=== PATIENT | male | born 1995 | race Caucasian/White ===

== ENCOUNTER 2025-03-16 14:03 | Inpatient (IN) | payer OTHER, SELFPAY ==
[2025-03-16 14:23] VITALS: BP 162/83; PULSE 116; RESP 18; TEMP 37.2; O2SAT 96; BMI 36.3
--- NOTE | 2025-03-16 14:26 | ECG_ITS ---
Test Reason : HTN/TACHY Blood Pressure : */* mmHG Vent. Rate : 114 BPM Atrial Rate : 114 BPM P-R Int : 168 ms QRS Dur : 92 ms QT Int : 322 ms P-R-T Axes : 41 35 29 degrees QTcB Int : 443 ms Sinus tachycardia Possible Left atrial enlargement Borderline ECG No previous ECGs available Referred By: David Gracia Electronically Signed By: MATEUSZ MORIN
--- NOTE | 2025-03-16 14:27 | ED.GENADULT ---
HPI - General Adult General Chief complaint: General Medical Stated complaint: dizzy Time Seen by Provider: 03/16/25 14:55 History of Present Illness ED Provider: Johnie Lucero MD HPI narrative: [age] male with proximally a one L of rum per day drinking habit. Denies any drug use. Use brought in by an outpatient detox center they could not handle this patient because he was on seizure precautions and was hypertensive 170s over 110s. Patient does not know of any underlying hypertension Diagnosis and takes no daily meds. Related Data Home Medications ?Medication ?Instructions ?Recorded ?Confirmed lamotrigine 100 mg tablet 200 mg PO DAILY 03/16/25 03/16/25 lurasidone 40 mg tablet 40 mg PO DAILY 03/16/25 03/16/25 Allergies Allergy/AdvReac Type Severity Reaction Status Date / Time No Known Allergies Allergy Verified 03/16/25 14:26 [facility] Social History Social History Household Members: None Housing: House Do you presently have visiting nurse or other home services: No Patient Tobacco Use Status: Current everyday Tobacco user Tobacco use type: Cigarette Cigarettes Per Day: 10 Second Hand Smoke Exposure: No Substance Use Type: Crack/Cocaine and Marijuana service: No Physical Exam ED Exam Exam: EXAM: Gen: Alert, awake, well appearing, well hydrated. Anxious appearing. ETOH on breath. Head: Atraumatic Eyes: Anicteric, Normal conjunctiva. 2-3 mm symmetric reactive pupils. No jaundice ENT: Moist mucosa, no pallor. ? Neck: Supple. Skin: ?No observable rash or bruising on exposed or examined skin Respiratory: Breathing comfortably, No distress.Clear to auscultation bilaterally, symmetric chest expansion, No wheeze, rales, ronchi. Cardiovascular: Regular rate and rhythm. No murmurs or rub. Well perfused periphery, warm extremities. No edema. ? Abdominal: No focal tenderness. Soft, no objective distension. No palpable masses or obvious organomegaly. ?No guarding, no rebound tenderness or other peritoneal findings. : No flank tenderness. Neuro: Alert. Gross movement of all extremities intact. ?No tremor or tongue fasciculations face symmetric. Psych: Calm. Cooperative. MSK: No grossly visible deformity. Vital signs: See flowsheet Vital Signs: Vital Signs - 24 hr 03/16/25 14:23 10/30/25 15:19 03/16/25 16:48 Temperature 98.9 F 98.5 F Pulse Rate 116 H 105 H 110 H Respiratory Rate 18 15 16 Blood Pressure 162/83 H 141/81 H 117/78 Pulse Oximetry 96 95 95 Oxygen Delivery Method Room Air Room Air Room Air BMI result Body Mass Index 36.3 Course Course Course Narrative: RME: 29 yold male with pmh of alcohol abuse presents to the ED for tachycarrdia, hypertensive, and alcohol level on breathlizer 0.3. Patient is usually drinks a hand of alcohol every day but not today. Patient has only had a little bit. Patient is possibly going to withdrawal. Patient will be brought back to the ED. Labs ordered Medications Administered Discontinued Medications Generic Name Dose Route Start Last Admin Trade Name Freq PRN Reason Stop Dose Admin Diazepam 10 mg 03/16/25 18:16 03/16/25 18:32 Diazepam 10 Mg/2 Ml Cartridge IVPUSH 03/16/25 18:17 10 mg STAT STA Administration Enoxaparin Sodium 40 mg 03/17/25 08:00 03/17/25 08:33 Enoxaparin Sodium 40 Mg/0.4 Ml Syringe SUBCUT 40 mg Q24H ALEXA Administration Folic Acid 1 mg 03/17/25 11:00 03/17/25 11:56 Folic Acid 1 Mg Tablet PO 03/19/25 09:01 1 mg DAILY ALEXA Administration Lactated Ringer's 1,000 mls @ 999 mls/hr 03/16/25 16:30 03/16/25 19:51 Lr IV 03/16/25 18:30 Infused .Q1H1M ALEXA Infusion Thiamine HCl 400 mg/ Sodium 104 mls @ 208 mls/hr 03/16/25 16:30 03/17/25 04:59 Chloride IV Infused Q12H ALEXA Infusion Lactated Ringer's 1,000 mls @ 100 mls/hr 03/16/25 18:30 03/17/25 11:57 Lr IVCONT Infused .Q10H ALEXA Infusion Phenobarbital 60 mg 03/17/25 09:00 03/17/25 08:33 Phenobarbital 30 Mg Tablet PO 03/18/25 21:01 60 mg BID ALEXA Administration Protocol Phenobarbital Sodium 300 mg 03/16/25 17:00 03/16/25 18:36 Phenobarbital Sodium 130 Mg/Ml Im Once IM 03/16/25 17:01 300 mg ONCE ONE Administration Protocol Phenobarbital Sodium 225 mg 03/16/25 21:00 03/17/25 00:34 Phenobarbital Sodium 130 Mg/Ml Vial Im Q3hx2 IM 03/17/25 00:01 225 mg Q3H ALEXA Administration Protocol Sodium Chloride 3 ml 03/17/25 00:00 03/17/25 07:35 0.9 % Sodium Chloride Flush 3 Ml Syringe IVFLUSH Not Given QSHIFT [facility] Medical Decision Making Medical Decision Making MDM Narrative: Medical Decision Making: [age] male alcohol use disorder intoxicated but perhaps despite this maybe an early withdrawal given the high volume of alcohol he depends on. Thiamine and fluid repletion in the ED. Phenobarbital initiated due to the risk of complicated withdrawal. No electrolyte derangements. No active GI bleeding, jaundice or other acute medical issues. Patient required parenteral phenobarbital No acute clinical suggestion of hypertensive emergency/end-organ damage, no chest pain to suggest ACS Preliminary Favored Differential Diagnosis: Alcohol use disorder, withdrawal, electrolyte derangement, vitamin deficiency among additional considered etiologies Testing Interpreted Independently: ?See below for details Radiology or Lab testing Results Reviewed: ?See below for details Consults: ?See below for details Independent Historians/External Chart Reviews: ?See below for details Social Determinants of Health Impacting MDM/Planning: ?See below for details Consult Healthcare Provider Management of the patient was discussed with: Hospitalist Lab Data MDM Lab Attestation statement: I reviewed the patient's lab results. 03/17/25 05:34 03/17/25 05:34 Labs: Lab Results 03/16/25 03/16/25 Range/Units 14:51 16:49 WBC 8.1 (4.8-10.8) X10*3/uL RBC 5.31 (4.60-5.80) X10*6/uL Hgb 17.3 (14.0-18.0) g/dl Hct 48.3 (42.0-52.0) % MCV 91.0 (80.0-98.0) fL MCH 32.6 (27.0-33.0) pg MCHC 35.8 (31.0-36.0) g/dl RDW 13.0 (11.0-16.0) % Plt Count 241 (160-400) X10*3/uL MPV 8.7 L (9.4-12.4) fL Immature Gran % (Auto) 0.4 (0.0-0.4) % Neut % (Auto) 68.8 (45-73) % Lymph % (Auto) 22.6 (20-40) % Rock % (Auto) 6.6 (2-11) % Eos % (Auto) 0.9 (0-4) % Baso % (Auto) 0.7 (0-2) % Lymph # (Auto) 1.8 (1.2-4.9) X10*3/uL Rock # (Auto) 0.5 (0.1-1.2) X10*3/uL Eos # (Auto) 0.1 (0.0-0.4) X10*3/uL Baso # (Auto) 0.1 (0.0-0.2) X10*3/uL Abs Immat Gran (auto) 0.03 (0.00-0.03) X10*3/uL Absolute Neuts (auto) 5.6 (2.0-8.3) x10*3/uL Absolute Nucleated RBC 0.000 (0.0-0.012) X10*3/uL Nucleated RBC % (auto) 0.0 (0.0-0.2) /100WBC Sodium 139 (135-145) mmol/L Potassium 3.9 (3.3-5.1) mmol/L Chloride 101 (96-108) mmol/L Carbon Dioxide 21 L (22-29) mmol/L Anion Gap 21 H (12-20) BUN 10 (9-16) mg/dL Creatinine 0.69 (0.5-1.4) mg/dL Estim Creat Clear Calc 206.3 Estimated GFR > 60 Random Glucose 88 (60-115) mg/dL Calcium 9.2 (8.4-10.2) mg/dL Magnesium 2.0 (1.6-2.6) mg/dL Total Bilirubin 0.8 (0.0-1.0) mg/dL AST 57 H (5-37) U/L ALT 44 H (0-40) U/L Alkaline Phosphatase 63 (39-117) U/L Troponin I High Sens 2.7 (<3.5-35.0) ng/L Total Protein 7.7 (6.5-8.0) g/dL Albumin 5.1 H (3.5-5.0) g/dL TSH 0.62 (0.32-4.0) uIU/mL Urine Color Yellow Urine Appearance Clear Urine pH 6.0 (5.0-9.0) Ur Specific [place] 1.015 (1.005-1.025) Urine Protein Negative (Neg-Trace) mg/dL Urine Glucose (UA) Negative (Negative) mg/dL Urine Ketones >=80 (Negative) mg/dL Urine Blood Negative (Negative) Urine Nitrite Negative (Negative) Ur Leukocyte Esterase Negative (Negative) Urine Opiates Screen Not Detected (Not Detect) Ur Buprenorphine Scrn Not Detected (Not Detect) ng/mL Ur Oxycodone Screen Not Detected (Not Detect) ng/mL Urine Methadone Screen Not Detected (Not Detect) ng/mL Urine Fentanyl Screen Not Detected (Not Detect) Ur Barbiturates Screen Not Detected (Not Detect) Ur Phencyclidine Scrn Not Detected (Not Detect) Ur Amphetamines Screen Not Detected (Not Detect) U Benzodiazepines Scrn Not Detected (Not Detect) Urine Cocaine Screen Not Detected (Not Detect) U Marijuana (THC) Screen Not Detected (Not Detect) Ethyl Alcohol 285 mg/dL Social Determinants Patient?s care significantly limited by Social Determinants of Health including: Alcoholism and drug addiction in family Alcohol use disorder Critical Care Time Critical Care Time Critical Care Time: Yes Total Critical Care Time: 30 Attestation: ED Critical Care: Alcohol withdrawal syndrome requiring parenteral withdrawal treatment Authorized and Performed by: Johnie Lucero MD Total critical care time: Approximately 30 min Due to a high probability of clinically significant, life threatening deterioration, the patient required my highest level of preparedness to intervene emergently and I personally spent this critical care time directly and personally managing the patient. This critical care time included obtaining a history; examining the patient; pulse oximetry; ordering and review of studies; arranging urgent treatment with development of a management plan; evaluation of patient's response to treatment; frequent reassessment; and, discussions with other providers. This critical care time was performed to assess and manage the high probability of imminent, life-threatening deterioration that could result in multi-organ failure. It was exclusive of separately billable procedures and treating other patients and teaching time. Discharge Plan Discharge Clinical Impression: ETOH abuse Patient Disposition: Admitted As Inpatient Interventions: Admission Worksheet (ED) Last Done: 03/16/25 18:10 Discharge Date/Time: 03/16/25 18:40
[2025-03-16 14:55] LABS: MANUAL DIFF FLAG NO
[2025-03-16 15:02] LABS: Hematocrit 48.3 % (42.0-52.0); Hemoglobin 17.3 g/dl (14.0-18.0); Imm Gran Abs Auto 0.03 X10*3/uL (0.00-0.03); Imm Gran Pct Auto 0.4 % (0.0-0.4); Lymphocytes Absolute Auto 1.8 X10*3/uL (1.2-4.9); Mean Corpuscular HGB Conc 35.8 g/dl (31.0-36.0); Mean Corpuscular Hemoglobin 32.6 pg (27.0-33.0); Mean Corpuscular Volume 91.0 fL (80.0-98.0); NRBC Abs Auto 0.000 X10*3/uL (0.0-0.012); NRBC Pct Auto 0.0 /100WBC (0.0-0.2); Platelet Count 241 X10*3/uL (160-400); Red Blood Count 5.31 X10*6/uL (4.60-5.80); White Blood Count 8.1 X10*3/uL (4.8-10.8)
[2025-03-16 15:19] VITALS: BP 141/81; PULSE 105; RESP 15; TEMP 36.9; O2SAT 95
[2025-03-16 15:23] LABS: Alanine Aminotransferase 44 U/L (0-40); Albumin Level 5.1 g/dL (3.5-5.0); Alkaline Phosphatase 63 U/L (39-117); Anion Gap 21 (12-20); Aspartate Amino Transferase 57 U/L (5-37); Blood Urea Nitrogen 10 mg/dL (9-16); Calcium 9.2 mg/dL (8.4-10.2); Carbon Dioxide 21 mmol/L (22-29); Chloride 101 mmol/L (96-108); Creatinine Clr Calc Pharmacy 206.3; Estimated Glomerular Filt Rate > 60; Magnesium 2.0 mg/dL (1.6-2.6); Potassium 3.9 mmol/L (3.3-5.1); Sodium 139 mmol/L (135-145); Total Protein 7.7 g/dL (6.5-8.0)
[2025-03-16 16:17] LABS: Troponin-I High Sensitivity 2.7 ng/L (<3.5-35.0)
--- NOTE | 2025-03-16 16:43 | PC.NURSE ---
Patint presents to ED for tachycarrdia, hypertensive PMH ETOH Patient is usually drinks a hand of alcohol every day Patient is possibly going to withdrawal. CIWA 1 Patient going to private Detox center, nurse Nereida called for update Patient gave permission to speak with nurse Nurse updated on plan Plan of care on going
[2025-03-16 16:48] VITALS: BP 117/78; PULSE 110; RESP 16; O2SAT 95
[2025-03-16 17:04] LABS: Thyroid Stimulating Hormone 0.62 uIU/mL (0.32-4.0)
[2025-03-16 17:06] LABS: Cannabinoid Screen Urine Not Detected (Not Detect)
[2025-03-16] MEDS: Lactated Ringers 1,000 ML 999 ML IV ×2 (17:10→18:37)
[2025-03-16 17:14] LABS: Appearance Urine Clear; Glucose Urine UA Negative (Negative); PH 6.0 (5.0-9.0); Specific Gravity - Urine 1.015 (1.005-1.025)
--- OUTSIDE RECORDS SUMMARY | 2025-03-16 18:02 | XMS_ITS | Encounter Summary ---
Author Organization [facility] Address [address] [facility] [address] [place] [phone] Phone Care Team Providers Care Patient Safety Officer Name Role Phone Carina Thurston MD Primary Care Provider + Encounter Details Date Type Department Care Team (Late st Contact Info) Description 07/05/2024 Procedure Pass [facility] Emergency Imaging, [address], [address] 1 [place] [address] Social History Tobacco Use Types Packs/Day Years Used Date Smoking Tobacco: Never Assessed Education Answer Date Recorded Are you interested in more education? Not on ena e 09/21/2022 Are you concerned about learning? Not on file 09/21/2022 No 09/21/2022 No 09/21/2022 Digital Access Answer Date Recorded No 10/12/2022 No 10/12/2022 No 10/12/2022 Reliable internet access at home? Not on file 10/12/2022 Device with a working camera? Not on file Intimate Partner Violence Answer Date R ecorded Are you denied basic needs s uch as food, clothing, or medical care? Deferred 07/05/2024 In the past 12 months have y ou been in a relationship with a person who hurts, threatens, or tries to control you? Deferred 07/05/2024 Are you denied basic needs s uch as food, clothing, or medical care? Deferred 07/05/2024 In the past 12 months have y ou been in a relationship with a person who hurts, threatens, or tries to control you? Deferred 07/05/2024 Sex and Gender Information Value Date Recorded Sex Assigned at Male 07/05/2024 10:50 AM EST Legal Sex Male 6:03 PM EST Gender Identity Male 07/05/2024 10:50 AM EST Sexual Orientation Choose not to disclose 2024 10:50 AM EST documented as of this encounter Functional Status * Calculated C-SSRS Risk Score (Lifetime/Recent) Answer Date of Assessment Author No Risk Indicated 07/05/2024 10:25 AM Camelia Choi RN * [place] Suicide Severity Rating Scale (Screener/Recent Self-Report) Question Answer Date of Assessment Author 1. Wish to be (Past 1 Month) No 07/05/2024 10:25 AM Camelia Choi RN 2. Non-Specific Active Suicidal Thoughts (Past 1 Month) No 07/05/2024 10:25 AM Camelia Choi RN 6. Suicidal Behavior (Lifetime) No 07/05/2024 10:25 AM Camelia Choi RN documented as of this encounter Plan of Treatment Not on file documented as of this encounter Visit Diagnoses Not on filedocumented in this encounter Care Teams Patient Safety Officer Relationship Specialty Start Date End Date Carina Thurston MD [address] [place] [id number] [email or web address] PCP - General 11/15/13 documented as of this encounter Additional Source Comments The information contained in this document represents components of the legal health record. It is not the complete legal health record.[facility]
--- OUTSIDE RECORDS SUMMARY | 2025-03-16 18:02 | XMS_ITS | Encounter Summary ---
Author Organization [facility] Address [address] [facility] [address] [place] [phone] Phone Care Team Providers Care Glass Sander Name Role Phone Carina Thurston MD Primary Care Provider + Encounter Details Date Type Department Care Team (Late st Contact Info) Description 07/05/[address] [facility] [place], [address] [place] [address] Social History Tobacco Use Types Packs/Day Years [...] 07/05/2024 10:25 AM Camelia Choi RN * [place] Suicide Severity Rating Scale (Screener/Recent Self-Report) Question [...] on filedocumented in this encounter Care Teams Glass Sander Relationship Specialty Start Date End Date Carina Thurston MD [address] [place] [id number] [email or web address] PCP - General 11/15/13 documented as of this encounter Additional Source Comments The information contained in this document represents components of the legal health record. It is not the complete legal health record.[facility]
--- OUTSIDE RECORDS SUMMARY | 2025-03-16 18:02 | XMS_ITS | Encounter Summary ---
Author Organization [facility] Address [address] [place] [address] [place] [phone] Care Team Providers Care Hvac Designer Name Role Phone Deisy Wang Check Writer Salesperson Unavailable Deisy Wang Check Writer Salesperson Primary Care Provider [phone] Poc, Not Assigned Pcp Or Primary Care Provider U navailable Encounter Details Date Type Department Care Team (Late st Contact Info) Description 12/05/2021 Telephone [facility] Internal Medicine [address] [place] [address] Christy Silverman Social History Tobacco Use Types Packs/Day Years Used Date Smoking Tobacco: Heavy Smoker Cigarettes Smokeless Tobacco: Never Alcohol Use Standard Drinks/Week Comments Yes 0 (1 standard drink = 0.6 oz pure alcohol) 1-2 times/month, has blacked out 5-6 times Sex and Gender Information Value Date Recorded Sex Assigned at Male 01/07/2021 10:35 AM EDT Legal Sex Male 11:49 AM EDT Gender Identity Male 01/07/2021 10:35 AM EDT Sexual Orientation Straight 01/07/2021 10 :35 AM EDT documented as of this encounter Miscellaneous Notes * Telephone Encounter - Christy Silverman - 12/05/2021 11:02 AM EDT lvm asking patient to call back and re-jelani appnt with someone on Deisy Chahal office. documented in this encounter Plan of Treatment Not on file documented as of this encounter Visit Diagnoses Not on filedocumented in this encounter Care Teams Hvac Designer Relationship Specialty Start Date End Date Deisy Wang NP PCP - Payer 02/17/20 Day, Deisy Sandra NP PCP - General Internal Medicine 06/22/20 04/04/24 Poc, Not Assigned Pcp Or PCP - General 04/05/24 documented as of this encounter
--- OUTSIDE RECORDS SUMMARY | 2025-03-16 18:02 | XMS_ITS | Encounter Summary ---
Author Organization [facility] Address [address] [facility] [address] [place] [phone] Phone Care Team Providers Care Branch Assistant Name Role Phone Carina Thurston MD Primary Care Provider + Encounter Details Date Type Department Care Team (Late st Contact Info) Description 07/05/2024 Procedure Pass [facility] [place] Imaging, [address] [place] [address] Social History Tobacco Use Types Packs/Day Years [...] 07/05/2024 10:25 AM Camelia Choi RN * [place] Suicide Severity Rating Scale (Screener/Recent Self-Report) Question [...] on filedocumented in this encounter Care Teams Branch Assistant Relationship Specialty Start Date End Date Carina Thurston MD [address] [place] [id number] [email or web address] PCP - General 11/15/13 documented as of this encounter Additional Source Comments The information contained in this document represents components of the legal health record. It is not the complete legal health record.[facility]
--- OUTSIDE RECORDS SUMMARY | 2025-03-16 18:02 | XMS_ITS | Encounter Summary ---
Author Organization [facility] Address [address] [facility] [address] [place] [address] Phone Care Team Providers Care Knitting Supervisor Name Role Phone Carina Thurston MD Primary Care Provider + Encounter Details Date Type Department Care Team (Late st Contact Info) Description 07/05/2024 Procedure Pass [facility] [place] Emergency Imaging, [address], [address] [place] [address] Social History Tobacco Use Types Packs/Day Years [...] 07/05/2024 10:25 AM Camelia Choi RN * [place] Suicide Severity Rating Scale (Screener/Recent Self-Report) Question [...] on filedocumented in this encounter Care Teams Knitting Supervisor Relationship Specialty Start Date End Date Carina Thurston MD [address] [place] [phone] [email or web address] PCP - General 11/15/13 documented as of this encounter Additional Source Comments The information contained in this document represents components of the legal health record. It is not the complete legal health record.[facility]
--- OUTSIDE RECORDS SUMMARY | 2025-03-16 18:02 | XMS_ITS | Encounter Summary ---
Author Organization [facility] Address [address] [facility] [address] [place] [phone] Phone Care Team Providers Care Rn Supplemental Name Role Phone Carina Thurston MD Primary Care Provider + Encounter Details Date Type Department Care Team (Late st Contact Info) Description 09/05/2024 Procedure [facility] Emergency Department, [facility] [address] [place] [address] Social History Tobacco Use Types Packs/Day Years [...] as food, clothing, or medical care? Deferred 09/04/2024 In the past 12 months have y ou been in a relationship with a person who hurts, threatens, or tries to control you? Deferred 09/04/2024 Are you denied basic needs s uch as food, clothing, or medical care? Deferred 09/04/2024 In the past 12 months have y ou been in a relationship with a person who hurts, threatens, or tries to control you? Deferred 09/04/2024 Sex and Gender Information Value Date Recorded Sex Assigned at Male 07/05/2024 10:50 AM EST Legal Sex Male 6:03 PM EST Gender Identity Male 07/05/2024 10:50 AM EST Sexual Orientation Choose not to disclose 2024 10:50 AM EST documented as of this encounter Functional Status * Calculated C-SSRS Risk Score (Lifetime/Recent) Answer Date of Assessment Author No Risk Indicated 09/05/2024 4:25 AM EDT Yessenia Howe RN * [place] Suicide Severity Rating Scale (Screener/Recent Self-Report) Question Answer Date of Assessment Author 1. Wish to be (Past 1 Month) No 025 4:25 AM EDT Yessenia Howe RN 2. Non-Specific Active Suici justin Thoughts (Past 1 Month) No 09/05/2024 4:25 AM EDT Yessenia Howe RN 6. Suicidal Behavior (Lifetime) No 4:25 AM EDT Yessenia Howe RN documented as of this encounter Plan of Treatment Not on file documented as of this encounter Visit Diagnoses Not on filedocumented in this encounter Care Teams Rn Supplemental Relationship Specialty Start Date End Date Carina Thurston MD [address] [place] [address] [email or web address] PCP - General 11/15/13 documented as of this encounter Additional Source Comments The information contained in this document represents components of the legal health record. It is not the complete legal health record.[facility]
--- OUTSIDE RECORDS SUMMARY | 2025-03-16 18:02 | XMS_ITS | Clinical Summary ---
Author Organization [facility] Address [address] [facility] [place] [address] [place] [address] Care Team Providers Care Layout Mechanic Name Role Phone Day, Deisy Sandra Airborne Operations Manager Unavailable Poc, Not Assigned Pcp Or Primary Care Provider U navailable Allergies No known active allergies Medications * This document contains information received from the source organization and may not represent a complete record from that organization. multivit-min/foli c/vit K/lycop (MEN'S MULTIVITAMIN ORAL) Take by mouth daily Active traZODone 50 mg tablet Take 1 to 2 tabs at night for sleep 60 tablet 2 1 Active zolpidem 10 mg tabletIndications :Difficulty sleeping Take 1 tablet by mouth at bedtime as needed 10 tablet 1 1 Active clonazePAM 1 mg tablet Take 1-2 tablets at bedtime as needed 14 tablet 1 Active Active Problems Problem Noted Date Diagnosed Date Difficulty sleeping 01/14/2021 Overview (01/14/2021): For 6-8 months Trouble both falling and staying asleep Not feeling overly stressed out 2 cups of coffee per day, has cut back Has tried multiple otc meds, valerian root, and melatonin which didn't help Trazodone not helpful Assessment & Plan (01/14/2021 8:44 AM EDT): Was seen a couple of months ago and rx'd trazodone which didn't help Diagnosed with anxiety though he doesn't feel anxious History of ?bipolar 2. Moods feels good. Discussed this possibly is a manic episode but no real evidence to support. No labs to date R/o thyroid disorder, mom has hypothyroid Will try ambien, side effects reviewed If not improved with ambien would consider clonazepam Cigarette smoker motivated to quit 2018 Overview (2018): 2018 Previously 1 ppd, now down to 1-1.5 packs per week. Gave Chantix trial. Assessment & Plan (01/14/2021 8:45 AM EDT): Working on cutting back chantix caused extremely lucid dreams, jitteriness to buproprion Recurrent major depressive disorder, in full rem ission 10/15/2009 Assessment & Plan (01/14/2021 8:46 AM EDT): Doing well Mood feels good overall Continue to monitor Resolved Problems Problem Noted Date Diagnosed Date Resolved Date Obesity 04/29/2004 01/14/2021 Assessment & Plan (01/14/2021 8:17 AM EDT): Normal BMI, problem resolved Immunizations Immunization Administration Dates Next Due COVID-19 (MODERNA) Vaccine, 100mcg/0.5mL, 18YRS+, IM 09/07/2020,08/10/2020 DTP Vaccine 01/15/1996 DTaP Vaccine 1999, 8,05/20/1996,03/17 HFlu B Conj (Unspecified Formulation) ,05/20/1996,03/17/1996,01/14 HPV4 Vaccine(6,11,16,18) (Gardasil4) 12/21/2013 HPV9 Vaccine (Gardasil9) 04/04/2019,2018 Hep B Vaccine (Unspecified Formulation) 05/20/1996,1995,1995 MMR Vaccine 1999,11/29/1996 Meningococcal ACWY (Menactra ) Conjugate Vaccine 08/22/2009 Meningococcal ACWY (Menveo) Conjugate Vaccine 08/22/2009 OPV,Trivalent (Admin before 08/17/2015) 05/20/1996 ,03/17/1996,01/15/1996 Polio Vaccine (Inactivated) 1999 TdaP 2018,02/04/2008 Varicella Vaccine 04/24/2008,07/06/1997 Family History Medical History Relation Comments Hypertension Father Thyroid disorder Maternal Aunt Glaucoma Maternal Grandmother Thyroid disorder Mother hypothyroid Other Other (-)CHOL (-)HTN Relation Status Comments Brother Alive Father Alive Maternal Aunt Alive Maternal Grandfather Maternal Grandmother Alive Mother Alive Other Paternal Grandfather Paternal Grandmother Social History Tobacco Use Types Packs/Day Years [...] Orientation Straight 01/07/2021 10 :35 AM EDT History Length Weight Head Circum Date/Time Gestation Age D/C Weight APGARs Delivery Method Feeding 20.5 (52.1 cm) 8 lb 1 oz (3.657 kg) 0 (0 cm) 1995 40 wks 7 lb 10 oz 1min: 9 5mi n: 9 Obstetrics History Last Filed Vital Signs Vital Sign Reading Time Taken Comments Blood Pressure 119/67 01/14/2021 7:53 AM EDT Pulse 81 01/14/2021 7:53 AM EDT Temperature 36.6 C (97.8 F) 01/14/2021 7:53 AM EDT Respiratory Rate - - Oxygen Saturation 98% 01/14/2021 7:53 AM EDT Inhaled Oxygen Concentration - - Weight 85.3 kg (188 lb) 01/14/2021 7:53 AM EDT Height 177.8 cm (5' 10 ) 01/14/2021 7:53 AM EDT Body Mass Index 26.98 01/14/2021 7:53 AM EDT Plan of Treatment Health Maintenance Due Date Last Done Comments OFFICE VISIT 1995 HEP B INITIAL SCREENING 11/14/2013 HIV SCREENING 11/14/2013 PERIODIC HEALTH REVIEW 11/14/2017 LIPID SCREENING 11/16/2023 2018, 12/21/2013 COVID-19 Vaccine ( season) 2025 09/07/2020, 08/10/2020 FLU SEASONAL (#1) 01/16/2025 HEP C SCREENING 01/14/2026 01/14/2021 DTAP/TDAP/TD VACCINE (8 - Td or Tdap) 2028 2018, 02/04/2008, 1999, Additional history exists HEPATITIS B VACCINE Completed 05/20/1996, 1995, 1995 HAEMOPHILUS INFLUENZA VACCINE Completed 11/29/1996, 05/20/1996, 03/17/1996, Additional history exists POLIO VACCINE Completed 1999, 07/1996, 03/17/1996, Additional history exists HEPATITIS A VACCINE Aged Out No longe r eligible based on patient's age to complete this topic PNEUMOCOCCAL VACCINE(S) Aged Out No l onger eligible based on patient's age to complete this topic RSV Vaccine //toddler Aged Out No longer eligible based on patient's age to complete this topic Procedures Procedure Name Priority Date/Time Associated Diagnosis Comments HEPATITIS C ANTIBODY W/REFLEX TO PCR Routine 01/14/2021 8:47 AM EDT Need for hepatitis C screening test HDL Routine 2018 9:28 AM EDT Encounter for general adult medical examination with abnormal findings from Last 3 Months or Most Recently Relevant to Health Maintenance Results * HEPATITIS C ANTIBODY W/REFLEX TO PCR (01/14/2021 8:47 AM EDT) HEPATITIS C ANTIBODY <0.02 <0.80 Index Value (IV) 01/14/2021 2:32 PM EDT [facility] DEPARTMENT OF PATHOLOGY AND LAB MEDICINE Comment: NEGATIVE 0.00 - 0.79 Index Value (IV) Negative Blood (Blood, Venous) Venipuncture / Unknown 01/14/2021 8:47 AM EDT 01/14/2021 8:50 AM EDT us Deisy Sandra Np Day GENERAL LAB Final Result [facility] DEPARTMENT OF PATHOLOGY AND LAB MEDICINE [address] [place] [address] * HDL (2018 9:28 AM EDT) HDL 71 >=41 mg/dL 2018 1:39 PM EDT [facility] DEPARTMENT OF PATHOLOGY AND LAB MEDICINE Blood (Blood, Venous) Venipuncture / Unknown 2018 9:28 AM EDT 2018 9:35 AM EDT [facility] Eliud Murillo Md Sammy GENERAL LAB Final Result Performing Organization Address [facility] Co de Phone Number [facility] OF PATHOLOGY AND LAB MEDICINE [address] [place] [address] from Last 3 Months or Most Recently Relevant to Health Maintenance Insurance [facility] Care Teams Layout Mechanic Relationship Specialty Start Date End Date Day, Deisy Sandra NP PCP - Payer 02/17/20 Poc, Not Assigned Pcp Or PCP - General 04/05/24
--- OUTSIDE RECORDS SUMMARY | 2025-03-16 18:02 | XMS_ITS | Clinical Summary ---
Author Organization [facility] Address [address] [place] [address] Care Team Providers Care Component Engineer Name Role Phone None Primary Care Provider Unavailabl e Allergies No known active allergies Social History Tobacco Use Types Packs/Day Years Used Date Smoking Tobacco: Never Assessed Sex and Gender Information Value Date Recorded Sex Assigned at Not on file Legal Sex Male 4:50 PM EST Gender Identity Male 06/06/2023 6:04 PM EST Sexual Orientation Straight 06/06/2023 6: 04 PM EST Last Filed Vital Signs Vital Sign Reading Time Taken Comments Blood Pressure 128/102 06/06/2023 8:39 PM EST Pulse 99 06/06/2023 5:30 PM EST Temperature 36.2 C (97.1 F) 06/06/2023 5:00 PM EST Respiratory Rate 18 06/06/2023 8:39 PM EST Oxygen Saturation 99% 06/06/2023 5:00 PM EST Inhaled Oxygen Concentration - - Weight 99.8 kg (220 lb) 06/06/2023 5:00 PM EST Height - - Body Mass Index - - Plan of Treatment Health Maintenance Due Date Last Done Comments Contraceptive Care Screening 1995 HIV SCREENING 11/14/2008 HEALTH CARE PROXY 11/14/2013 HEP C SCREEN 11/14/2013 LIPID SCREENING 11/14/2013 TETANUS VACCINE (1 - Tdap) 11/14/2013 PHYSICAL EXAM 11/14/2017 COVID-19 Vaccine (3 - 2024-2 6 season) 2025 09/07/2020, 08/10/2020 INFLUENZA VACCINE (#1) 2025 ZOSTER VACCINE (1 of 2) 11/14/2045 HPV VACCINE SERIES Aged Out No longer eligible based on patient's age to complete this topic MENINGOCOCCAL (MCV4) VACCINE SERIES Aged Out No longer eligible b ased on patient's age to complete this topic MENINGOCOCCAL B VACCINE SERIES Aged Out No longer eligible based on patient's age to complete this topic PNEUMOCOCCAL VACCINE SERIES Aged Out No longer eligible based on patient's age to complete this topic Insurance [place] [address] Care Teams Component Engineer Relationship Specialty Start Date End Date None PCP - General 06/06/23
--- OUTSIDE RECORDS SUMMARY | 2025-03-16 18:02 | XMS_ITS | Encounter Summary ---
Author Organization [facility] Address [address] [facility] [address] [place] [phone] Phone Care Team Providers Care Laboratory Sampler Name Role Phone Carina Thurston MD Primary Care Provider + Encounter Details Date Type Department Care Team (Late st Contact Info) Description 07/05/2024 Procedure Pass [facility], [address], [address] [place] [address] Social History Tobacco Use Types Packs/Day Years [...] 07/05/2024 10:25 AM Camelia Choi RN * Reynolds Suicide Severity Rating Scale (Screener/Recent Self-Report) Question [...] on filedocumented in this encounter Care Teams Laboratory Sampler Relationship Specialty Start Date End Date Carina Thurston MD [address] [place] [phone] [email or web address] PCP - General 11/15/13 documented as of this encounter Additional Source Comments The information contained in this document represents components of the legal health record. It is not the complete legal health record.[facility]
[2025-03-16 18:03] VITALS: BP 117/78; PULSE 110; RESP 16; O2SAT 95
--- OUTSIDE RECORDS SUMMARY | 2025-03-16 18:03 | XMS_ITS | Clinical Summary ---
Author Organization [facility] Address [address] [id number] Care Team Providers Care Hazmat Technician Name Role Phone Unavailable Primary Care Provider Unavailabl e Social History Tobacco Use Types Packs/Day Years Used Date Smoking Tobacco: Never Assessed Sex and Gender Information Value Date Recorded Sex Assigned at Male 07/02/2023 11:56 PM EST Legal Sex Male 11:56 PM EST Gender Identity Male 07/02/2023 11:56 PM EST Sexual Orientation Not on file Plan of Treatment Health Maintenance Due Date Last Done Comments Blood Pressure 1995 Depression Screening 1999 Hepatitis C Screening 11/14/2013 DTaP,Tdap,and Td Vaccines (1 - Tdap) 11/14/2014 COVID-19 Vaccine (2023-2 5 season) 2025 Influenza Vaccine (#1) 2025 Meningococcal B Vaccines Aged Out No longer eligible based on patient's age to complete this topic Meningococcal Vaccines Aged Out No lo nger eligible based on patient's age to complete this topic Pneumococcal Vaccine Aged Out No long er eligible based on patient's age to complete this topic
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
--- NOTE | 2025-03-16 18:20 | P.HPHOSP_ITS ---
History of Present Illness Date of Service: 03/16/25 Chief Complaint: Acute alcohol withdrawal 29-year-old male with history of recurrent alcohol abuse drinking approximately 0.5 gal of liquor per day presents from alcohol detox secondary to a Breathalyzer of 0.3. Patient states he has been doing this for quite some time and the last time he tried to quit he he had several seizures. Brought here by detox we will be admitted for acute alcohol withdrawal Review of Systems 2 Review of Systems: Denies chest pain Denies shortness of breath Denies nausea vomiting diarrhea Denies fever chills PMFSH Social History Smoked in Last 30 Days: Yes Substance Use Type: Crack/Cocaine and Marijuana Substance Use Frequency: Daily Advance Directives: No Advance Directives Information Provided: Yes Do you have a plan to hurt others: No Plan Meds Allergies Allergy/AdvReac Type Severity Reaction Status Date / Time No Known Allergies Allergy Verified 03/16/25 14:26 Active Medications: Current Medications Lactated Ringer's (Lr) 1,000 mls @ 999 mls/hr IV .Q1H1M ALEXA Stop: 03/16/25 18:30 Last Admin: 03/16/25 17:10 Dose: 999 mls/hr Thiamine HCl 400 mg/ Sodium (Chloride) 104 mls @ 208 mls/hr IV Q12H ALEXA Last Infusion: 03/16/25 18:04 Dose: Infused Pharmacy Consult (Consult Rx Etoh Phenob Im/Po) 1 each MISCELLANE ONCE PRN; Protocol PRN Reason: Consult order Phenobarbital (Phenobarbital 30 Mg Tablet) 60 mg PO BID ALEXA; Protocol Stop: 03/18/25 21:01 Phenobarbital (Phenobarbital 30 Mg Tablet) 30 mg PO BID ALEXA; Protocol Stop: 03/20/25 21:01 Phenobarbital (Phenobarbital 30 Mg Tablet) 30 mg PO DAILY ALEXA; Protocol Stop: 03/22/26 09:01 Phenobarbital Sodium (Phenobarbital Sodium 130 Mg/Ml Vial Im Q3hx2) 225 mg IM Q3H ALEXA; Protocol Stop: 03/16/25 23:01 Physical Exam 2 Vital Signs and Narrative: Vital Signs: Last Vital Signs Temp 98.5 F 03/16/25 15:19 Pulse 110 H 03/16/25 18:03 Resp 16 03/16/25 18:03 BP 117/78 03/16/25 18:03 Pulse Ox 95 03/16/25 18:03 O2 Del Method Room Air 03/16/25 18:03 BMI result Body Mass Index 36.3 Const: Other: Awake alert tremulous Resp: Other: Clear to auscultation bilaterally no rales rhonchi or wheezes Cardio: Other: No S4; positive S1-S2; no S3 murmurs rubs or gallops GI: Other: Soft nontender nondistended normoactive bowel sounds Extrem: Other: No edema bilaterally Results Labs 03/16/25 14:51 03/16/25 14:51 Labs: Laboratory Results - last 24 hr 03/16/25 03/16/25 14:51 16:49 MCV 91.0 MCH 32.6 MCHC 35.8 RDW 13.0 Plt Count 241 MPV 8.7 L Immature Gran % (Auto) 0.4 Neut % (Auto) 68.8 Lymph % (Auto) 22.6 [place] % (Auto) 6.6 Eos % (Auto) 0.9 Baso % (Auto) 0.7 Lymph # (Auto) 1.8 [place] # (Auto) 0.5 Eos # (Auto) 0.1 Baso # (Auto) 0.1 Abs Immat Gran (auto) 0.03 Absolute Neuts (auto) 5.6 Absolute Nucleated RBC 0.000 Nucleated RBC % (auto) 0.0 Anion Gap 21 H Estim Creat Clear Calc 206.3 Estimated GFR > 60 Random Glucose 88 Calcium 9.2 Magnesium 2.0 Total Bilirubin 0.8 AST 57 H ALT 44 H Alkaline Phosphatase 63 Troponin I High Sens 2.7 Total Protein 7.7 Albumin 5.1 H TSH 0.62 Urine Color Yellow Urine Appearance Clear Urine pH 6.0 Ur Specific [place] 1.015 Urine Protein Negative Urine Glucose (UA) Negative Urine Ketones >=80 Urine Blood Negative Urine Nitrite Negative Ur Leukocyte Esterase Negative Urine Opiates Screen Not Detected Ur Buprenorphine Scrn Not Detected Ur Oxycodone Screen Not Detected Urine Methadone Screen Not Detected Urine Fentanyl Screen Not Detected Ur Barbiturates Screen Not Detected Ur Phencyclidine Scrn Not Detected Ur Amphetamines Screen Not Detected U Benzodiazepines Scrn Not Detected Urine Cocaine Screen Not Detected U Marijuana (THC) Screen Not Detected Ethyl Alcohol 285 Assessment and Plan (1) Alcohol withdrawal delirium, acute, hyperactive: Status: Acute (2) ETOH abuse: Status: Acute (3) Bipolar disorder: Qualifiers: Active/Remission status: remission status unspecified Qualified Code(s): F31.9 - Bipolar disorder, unspecified Status: Acute Plan 29-year-old male presents from detox with breathalyzer of 0.3. Admits to drinking 0.5 gal of captain [place]on liquor daily for quite some time. History of alcohol withdrawal syndromes 1. Alcohol withdrawal -CIWA scale -phenobarb protocol with intermittent IV Valium as clinically indicated -seizure precautions -addiction Medicine consult 2. Bipolar disorder -continue outpatient therapies Full code Pneumatics Patient will require at least 2 midnights going forward of inpatient stay to treat acute alcohol withdrawal. This can not be achieved a lesser acute setting Quality Stroke Does the patient have a stroke diagnosis?: No VTE Prior VTE?: No VTE Risk Level:: Medical - moderate - high VTE Device Contraindication: N/A - Device Ordered VTE Drug Contraindication: Treatment Not Indicated
[2025-03-16] MEDS: diazePAM 10 MG/2 ML CARTRIDGE IVPUSH (18:32)
[2025-03-16] MEDS: PHENobarbitaL sodium 130 MG/ML IM ONCE 300 MG IM (18:36)
[2025-03-16 18:51] VITALS: BP 131/79; PULSE 111; RESP 16; TEMP 36.6; O2SAT 94
[2025-03-16 18:58] VITALS: BMI 36.0
--- NOTE | 2025-03-16 19:04 | PHA.MEDREC ---
Addendum entered by Claire Denise RPh 03/16/25 19:48: Reviewed by [facility]. Original Note: Pharmacy Consult ? Medication Reconciliation Pharmacy has completed the medication reconciliation. Patient was able to confirm his medications. Patient had all his morning medications today.
[2025-03-16] MEDS: Lactated Ringers 1,000 ML 100 ML IVCONT (19:44)
[2025-03-16 21:11] VITALS: BP 131/72; PULSE 114; RESP 20; TEMP 36.9; O2SAT 97
[2025-03-16] MEDS: PHENobarbitaL sodium 130 MG/ML VIAL IM Q3Hx2 225 MG IM (21:16)
[2025-03-17 00:30] VITALS: BP 116/70; PULSE 87; RESP 20; TEMP 37; O2SAT 98
[2025-03-17] MEDS: PHENobarbitaL sodium 130 MG/ML VIAL IM Q3Hx2 225 MG IM (00:34)
[2025-03-17 03:13] VITALS: BP 146/86; PULSE 94; RESP 18; TEMP 36.3; O2SAT 96
[2025-03-17] MEDS: Lactated Ringers 1,000 ML 100 ML IVCONT (04:28)
[2025-03-17 06:21] LABS: MANUAL DIFF FLAG NO
[2025-03-17 06:41] VITALS: BP 160/77; PULSE 97; RESP 16; TEMP 36.6; O2SAT 98
[2025-03-17 06:43] LABS: Hematocrit 42.5 % (42.0-52.0); Hemoglobin 14.8 g/dl (14.0-18.0); Imm Gran Abs Auto 0.01 X10*3/uL (0.00-0.03); Imm Gran Pct Auto 0.2 % (0.0-0.4); Lymphocytes Absolute Auto 1.3 X10*3/uL (1.2-4.9); Mean Corpuscular HGB Conc 34.8 g/dl (31.0-36.0); Mean Corpuscular Hemoglobin 31.9 pg (27.0-33.0); Mean Corpuscular Volume 91.6 fL (80.0-98.0); NRBC Abs Auto 0.000 X10*3/uL (0.0-0.012); NRBC Pct Auto 0.0 /100WBC (0.0-0.2); Platelet Count 170 X10*3/uL (160-400); Red Blood Count 4.64 X10*6/uL (4.60-5.80); White Blood Count 6.6 X10*3/uL (4.8-10.8)
[2025-03-17 06:44] LABS: Alanine Aminotransferase 94 U/L (0-40); Albumin Level 4.1 g/dL (3.5-5.0); Alkaline Phosphatase 56 U/L (39-117); Anion Gap 15 (12-20); Aspartate Amino Transferase 130 U/L (5-37); Blood Urea Nitrogen 8 mg/dL (9-16); Calcium 8.5 mg/dL (8.4-10.2); Carbon Dioxide 26 mmol/L (22-29); Chloride 100 mmol/L (96-108); Creatinine Clr Calc Pharmacy 232.5; Estimated Glomerular Filt Rate > 60; Potassium 3.6 mmol/L (3.3-5.1); Sodium 137 mmol/L (135-145); Total Protein 6.2 g/dL (6.5-8.0)
--- NOTE | 2025-03-17 07:54 | P.PNIM_ITS ---
Subjective Subjective Date of Service: 03/17/25 Interval History: f/u on alcoholic withdrawal Physical Exam 2 Vital Signs: Vital Signs: Last Vital Signs Temp 98 F 03/17/25 06:41 Pulse 97 03/17/25 06:41 Resp 16 03/17/25 06:41 BP 160/77 H 03/17/25 06:41 Pulse Ox 98 03/17/25 06:41 O2 Del Method Room Air 03/17/25 06:41 BMI result Body Mass Index 36.0 Const: Other: General: AO X 3, no acute distress Resp: CTA bilateral CVS: S1,S2,RRR GI: +BS, NT, no distention Skin: No rash Neuro: motor grossly intact Psych: appropriate affect Objective Data Active Medications Acetaminophen (Acetaminophen 325 Mg Tablet) 650 mg PO Q6H PRN PRN Reason: Pain, Mild 1-3,fever,headache Calcium Carbonate (Calcium Carbonate 750 Mg Tab.Chew) 750 mg PO Q4H PRN PRN Reason: Heartburn Thiamine HCl 400 mg/ Sodium (Chloride) 104 mls @ 208 mls/hr IV Q12H ALEXA Last Infusion: 03/17/25 04:59 Dose: Infused Documented By: SHELDON Lactated Ringer's (Lr) 1,000 mls @ 100 mls/hr IVCONT .Q10H ALEXA Last Admin: 03/17/25 04:28 Dose: 100 mls/hr Documented By: SHELDON Magnesium Hydroxide (Milk Of Magnesia 30 Ml Oral.Susp) 30 ml PO DAILY PRN PRN Reason: Constipation Melatonin (Melatonin 3 Mg Tablet) 6 mg PO BEDTIME PRN PRN Reason: Insomnia Ondansetron HCl (Ondansetron Hcl 4 Mg/2 Ml Vial) 4 mg IVPUSH Q8H PRN PRN Reason: Nausea and Vomiting Pharmacy Consult (Consult Rx Etoh Phenob Im/Po) 1 each MISCELLANE ONCE PRN; Protocol PRN Reason: Consult order Phenobarbital (Phenobarbital 30 Mg Tablet) 60 mg PO BID ALEXA; Protocol Stop: 03/18/25 21:01 Phenobarbital (Phenobarbital 30 Mg Tablet) 30 mg PO BID ALEXA; Protocol Stop: 03/20/25 21:01 Phenobarbital (Phenobarbital 30 Mg Tablet) 30 mg PO DAILY ALEXA; Protocol Stop: 03/22/26 09:01 Sodium Chloride (0.9 % Sodium Chloride Flush 3 Ml Syringe) 3 ml IVFLUSH QSHIFT ALEXA Last Admin: 03/17/25 07:35 Dose: Not Given Documented By: HALLE Non-Admin Reason: IV Running Labs 03/17/25 05:34 03/17/25 05:34 Labs: Laboratory Results - last 24 hr 03/16/25 03/16/25 03/17/25 14:51 16:49 05:34 MCV 91.0 91.6 MCH 32.6 31.9 MCHC 35.8 34.8 RDW 13.0 12.7 Plt Count 241 170 D MPV 8.7 L 9.1 L Immature Gran % (Auto) 0.4 0.2 Neut % (Auto) 68.8 68.5 Lymph % (Auto) 22.6 20.2 [place] % (Auto) 6.6 7.3 Eos % (Auto) 0.9 3.0 Baso % (Auto) 0.7 0.8 Lymph # (Auto) 1.8 1.3 [place] # (Auto) 0.5 0.5 Eos # (Auto) 0.1 0.2 Baso # (Auto) 0.1 0.1 Abs Immat Gran (auto) 0.03 0.01 Absolute Neuts (auto) 5.6 4.5 Absolute Nucleated RBC 0.000 0.000 Nucleated RBC % (auto) 0.0 0.0 Anion Gap 21 H 15 Estim Creat Clear Calc 206.3 232.5 Estimated GFR > 60 > 60 Random Glucose 88 80 Calcium 9.2 8.5 D Magnesium 2.0 Total Bilirubin 0.8 2.1 H AST 57 H 130 H ALT 44 H 94 H Alkaline Phosphatase 63 56 Troponin I High Sens 2.7 Total Protein 7.7 6.2 L Albumin 5.1 H 4.1 TSH 0.62 Urine Color Yellow Urine Appearance Clear Urine pH 6.0 Ur Specific [place] 1.015 Urine Protein Negative Urine Glucose (UA) Negative Urine Ketones >=80 Urine Blood Negative Urine Nitrite Negative Ur Leukocyte Esterase Negative Urine Opiates Screen Not Detected Ur Buprenorphine Scrn Not Detected Ur Oxycodone Screen Not Detected Urine Methadone Screen Not Detected Urine Fentanyl Screen Not Detected Ur Barbiturates Screen Not Detected Ur Phencyclidine Scrn Not Detected Ur Amphetamines Screen Not Detected U Benzodiazepines Scrn Not Detected Urine Cocaine Screen Not Detected U Marijuana (THC) Screen Not Detected Ethyl Alcohol 285 Assessment and Plan (1) Alcohol withdrawal delirium, acute, hyperactive: Status: Acute (2) Bipolar disorder: Status: Acute (3) ETOH abuse: Status: Acute Plan 29-year-old male presents from detox with breathalyzer of 0.3. Admits to drinking 0.5 gal of captain [place]on liquor daily for quite some time. History of alcohol withdrawal syndromes 1. Alcohol withdrawal with high risk for DTs and seizure, presently calm -monitor CIWA scale -phenobarb protocol with intermittent IV Valium as clinically indicated -seizure precautions -Folic acid and thiamine -addiction Medicine consult 2. Bipolar disorder -continue outpatient therapies DVT prophylaxis: lovenox Full code Pneumatics Patient will require at least 2 midnights going forward of inpatient stay to treat acute alcohol withdrawal. This can not be achieved a lesser acute setting Dc in am if doing better Quality Stroke Does the patient have a stroke diagnosis?: No VTE Prior VTE?: No VTE Risk Level:: Medical - moderate - high VTE Device Contraindication: N/A - Device Ordered VTE Drug Contraindication: Treatment Not Indicated
--- NOTE | 2025-03-17 11:28 | MHC.CM.PN ---
Addendum entered by Elma Prasad 03/17/25 11:32: addiction medicine /christina/[facility]ae[facility] /[facility] which he [facility] called and spoke with christina dc plan return to same Original Note: pt want to return to [facility]/addiction medicine notified
--- NOTE | 2025-03-17 11:35 | MHC.RECOVRN ---
Addendum entered by Javier Mcgrath RN 03/17/25 11:36: [facility] [phone] - Voice mail left in regards to pt being ready for d/c. No follow up call has been received as of yet. Original Note: Received phone call from [facility] and they are ready to accept pt whenever pt's BP is stabilized. They are able to black pickler pt themselves to bring to [facility]. Hospitalist aware and stating pt is ready to be d/c today for transfer to [facility].
--- NOTE | 2025-03-17 14:12 | P.EN_ITS ---
Event Note Date of Service: 03/17/25 Event Note: Addiction consult placed for patient with AUD and acute withdrawal Chart reviewed and patient seen by principal system software engineer -please see note for additional details Per RN[facility]. No follow up indicated at this time Time Spent With Patient Time: Total time managing care of this patient today ____ minutes.
--- NOTE | 2025-03-17 14:15 | PM.DS ---
DS: Providers Provider Date of Service: 03/17/25 Date of admission: 03/16/25 17:12 Date of discharge: 03/17/25 Primary care physician: None Physician Consults: 03/16/25 19:05 Addiction Medicine Provider Routine Consulting Provider: Addiction Covering Reason for consultation: ETOH DS: Diagnosis Discharge Diagnosis (1) Alcohol withdrawal delirium, acute, hyperactive: Status: Acute (2) Bipolar disorder: Status: Acute (3) ETOH abuse: Status: Acute DS: Summary Hospital Course Hospital Course: Chief Complaint: Acute alcohol withdrawal 29-year-old male with history of recurrent alcohol abuse drinking approximately 0.5 gal of liquor per day presents from alcohol detox secondary to a Breathalyzer of 0.3. Patient states he has been doing this for quite some time and the last time he tried to quit he he had several seizures. Brought here by detox we will be admitted for acute alcohol withdrawal Hospital course: Patient was admitted for management of alcohol withdrawal. He was treated with phenobarbital protocol he is presently without shakes. He is interested in alcohol detox, he has been evaluated by a recovery team and arrangements have been made for him to go to an alcohol detox facility Time Attestation Discharge Coordination Time (in mins): 45 Quality: Safe Use of Opioids Does Pt have an Active Cancer Diagnosis on the Problem List?: No Quality: Stroke Does the patient have a stroke diagnosis?: No Physical Exam Vital Signs: Vital Signs: Last Vital Signs Temp 98 F 03/17/25 06:41 Pulse 97 03/17/25 06:41 Resp 16 03/17/25 06:41 BP 160/77 H 03/17/25 06:41 Pulse Ox 98 03/17/25 06:41 O2 Del Method Room Air 03/17/25 06:41 BMI result Body Mass Index 36.0 DS: Data Data Completed and Pending Labs on day of discharge: Laboratory Results - last 24 hr 03/16/25 03/16/25 03/17/25 14:51 16:49 05:34 WBC 8.1 6.6 RBC 5.31 4.64 Hgb 17.3 14.8 Hct 48.3 42.5 MCV 91.0 91.6 MCH 32.6 31.9 MCHC 35.8 34.8 RDW 13.0 12.7 Plt Count 241 170 D MPV 8.7 L 9.1 L Immature Gran % (Auto) 0.4 0.2 Neut % (Auto) 68.8 68.5 Lymph % (Auto) 22.6 20.2 [place] % (Auto) 6.6 7.3 Eos % (Auto) 0.9 3.0 Baso % (Auto) 0.7 0.8 Lymph # (Auto) 1.8 1.3 [place] # (Auto) 0.5 0.5 Eos # (Auto) 0.1 0.2 Baso # (Auto) 0.1 0.1 Abs Immat Gran (auto) 0.03 0.01 Absolute Neuts (auto) 5.6 4.5 Absolute Nucleated RBC 0.000 0.000 Nucleated RBC % (auto) 0.0 0.0 Sodium 139 137 Potassium 3.9 3.6 Chloride 101 100 Carbon Dioxide 21 L 26 Anion Gap 21 H 15 BUN 10 8 L Creatinine 0.69 0.61 Estim Creat Clear Calc 206.3 232.5 Estimated GFR > 60 > 60 Random Glucose 88 80 Calcium 9.2 8.5 D Magnesium 2.0 Total Bilirubin 0.8 2.1 H AST 57 H 130 H ALT 44 H 94 H Alkaline Phosphatase 63 56 Troponin I High Sens 2.7 Total Protein 7.7 6.2 L Albumin 5.1 H 4.1 TSH 0.62 Urine Color Yellow Urine Appearance Clear Urine pH 6.0 Ur Specific [facility] 1.015 Urine Protein Negative Urine Glucose (UA) Negative Urine Ketones >=80 Urine Blood Negative Urine Nitrite Negative Ur Leukocyte Esterase Negative Urine Opiates Screen Not Detected Ur Buprenorphine Scrn Not Detected Ur Oxycodone Screen Not Detected Urine Methadone Screen Not Detected Urine Fentanyl Screen Not Detected Ur Barbiturates Screen Not Detected Ur Phencyclidine Scrn Not Detected Ur Amphetamines Screen Not Detected U Benzodiazepines Scrn Not Detected Urine Cocaine Screen Not Detected U Marijuana (THC) Screen Not Detected Ethyl Alcohol 285 Discharge Plan Discharge Anticipated Discharge Date/Time: 03/17/25 14:13 Patient Disposition: Xfer Other Discharge Diagnosis: Alcohol withdrawal, alcohol dependency Referrals: Physician,None [Primary Care Provider, Medical] - 1 Week Discharge Medications: Continued lamotrigine 100 mg tablet 200 mg PO DAILY lurasidone 40 mg tablet 40 mg PO DAILY Discharge Orders: Discharge Order (Routine); Ordered 03/17/25 Ordered By: Watson Shelton Diet: Advance to usual diet Activity on Discharge: As tolerated Stand Alone Forms: Patient Portal Discharge page Print Language: [place] Care Plan Goals: Recovery from alcohol withdrawal and abstinence from alcohol use Health Concerns: Alcohol withdrawal Alcohol dependence Plan of Treatment: To alcohol detox facility Assessment: See above
--- NOTE | 2025-03-17 14:52 | MHC.CM.PN ---
[facility]
[2025-03-17 15:31] VITALS: BP 142/61; PULSE 93; RESP 18; TEMP 36.5; O2SAT 96
== END 2025-03-17 15:42 | disposition other institution (70) | DRG 897 ==
LOC: HO.ED 15:34 → HO.EDOVER 17:13 → HO.S3 17:56
PROVIDERS: Physician Assistant; Admitting Provider Hospitalist; Emergency Provider Emergency Medicine; Visit Provider Internal Medicine
DX: F10.239 Alcohol dependence with withdrawal, unspecified (principal); F17.210 Nicotine dependence, cigarettes, uncomplicated; F31.9 Bipolar disorder, unspecified; Y90.8 Blood alcohol level of 240 mg/100 ml or more; Z71.6 Tobacco abuse counseling; Z71.41 Alcohol abuse counseling and surveillance of alcoholic; Z79.899 Other long term (current) drug therapy
CPT/HCPCS: 36415; 80053; 80307; 81003; 83735; 84443; 84484; 85025; 93005; 99285; J1650; J2560; J3360; J3411; J7120; S9485

== ENCOUNTER → 2025-03-16 14:26 | Outpatient (BNV) | payer OTHER, SELFPAY | PROVIDERS: Admitting Provider Hospitalist; Emergency Provider Emergency Medicine; Visit Provider Internal Medicine | DX: R00.0 Tachycardia, unspecified (principal) | CPT/HCPCS: 93010 ==

== ENCOUNTER → 2025-03-16 17:12 | Outpatient (BNV) | payer OTHER, SELFPAY | PROVIDERS: Admitting Provider Hospitalist; Emergency Provider Emergency Medicine; Visit Provider Hospitalist | DX: F10.931 Alcohol use, unspecified with withdrawal delirium (principal); F31.9 Bipolar disorder, unspecified | CPT/HCPCS: 99222; 99499 ==